=== PATIENT | male | born 1950 | race Caucasian/White ===

== ENCOUNTER → 2024-10-05 | Outpatient (CLI) | payer MEDICARE, BC ==
--- NOTE | 2024-10-05 15:49 | CT ---
EXAMINATION TYPE: CT abdomen pelvis wo con DATE OF EXAM: 10/05/2024 COMPARISON: None CLINICAL INDICATION: Male, 74 years old with history of R19.4 CHANGE IN BOWEL HABIT; PHH, altered bow el habits TECHNIQUE: CT scan of the abdomen and pelvis is performed without oral or IV contrast. CT DLP: 592.[address] CTDI: mGy Automated exposure control for dose reduction was used. FINDINGS: Within the limitations of a non-contrast study, the following observations are made. The lungs are clear. There is a small hiatal hernia. Gallbladder is normal and there is no gallstone, wall thickening, pericholecystic fluid or distention . There is no biliary ductal dilatation. There is no organomegaly of the liver, pancreas, spleen or adrenal glands. There are no renal calcifications or hydronephrosis. There is a 2.8 cm parapelvic cyst of the left ki dney. The caliber of the abdominal aorta is normal and there is no retroperitoneal adenopathy or hemorrhage . The bowel loops are normal in caliber is no evidence of obstruction. No inflammatory changes are iden tified in the mesentery and there is no free intraperitoneal air or fluid. There is no pelvic mass, free fluid, abscess or adenopathy. There is moderate prostatic hypertrophy. The osseous structures and soft tissues are unremarkable. IMPRESSION: 1. Small hiatal hernia. 2. Moderate prostatic hypertrophy. [facility], , 10/05/2024 3:47 PM
[2024-10-05 18:28] LABS: Albumin 4.6 g/dL (3.8-4.9); Blood Urea Nitrogen 17.5 mg/dL (9.0-27.0); Calcium 10.1 mg/dL (8.7-10.3); Carbon Dioxide 22.9 mmol/L (21.6-31.8); Chloride 102 mmol/L (96-109); Glucose 123 mg/dL (70-110); Phosphorus 4.1 mg/dL (2.4-5.1); Potassium 5.2 mmol/L (3.5-5.5); Sodium 136 mmol/L (135-145)
== END | disposition home or self-care (01) ==
LOC: RADCTMAIN 11:30
PROVIDERS: ATTEND Internal Medicine Gastroenterology
DX: K44.9 Diaphragmatic hernia without obstruction or gangrene (principal); N40.0 Benign prostatic hyperplasia without lower urinary tract symptoms; R19.4 Change in bowel habit
CPT/HCPCS: 74176; 80069